=== PATIENT | male | born 1990 | race Caucasian/White ===

== ENCOUNTER 2016-10-17 13:16 | Emergency (ER) | payer OTHER ==
[2016-10-17 13:32] VITALS: BP 139/77; PULSE 78; RESP 18; TEMP 98; O2SAT 97
--- NOTE | 2016-10-17 13:43 | EDPHY ---
H & P Stated Complaint: c/o pine needle insertion to Lt hand while @ work Time Seen by Provider: 10/17/16 13:37 HPI/ROS: CHIEF COMPLAINT: Splinter HISTORY OF PRESENT ILLNESS: Patient is a 26-year-old man who grabbed a pine tree a work and had a pine needle staff him in the hand. He did not go very deep. He was worried that maybe he pinched a nerve. This happened a few hours ago. He has normal range of motion and function. No swelling or erythema. REVIEW OF SYSTEMS: Constitutional: denies: chills, fever, recent illness, recent injury EENTM: denies: blurred vision, double vision, nose congestion Respiratory: denies: cough, shortness of breath Cardiac: denies: chest pain, irregular heart rate, lightheadedness, palpitations Gastrointestinal/Abdominal: denies: abdominal pain, diarrhea, nausea, vomiting, blood streaked stools Genitourinary: denies: dysuria, frequency, hematuria, pain Musculoskeletal: denies: joint pain, muscle pain Skin: See HPI Neurological: denies: headache, numbness, paresthesia, tingling, dizziness, weakness Hematologic/Lymphatic: denies: blood clots, easy bleeding, easy bruising Immunologic/allergic: denies: HIV/AIDS, transplant EXAM: GENERAL: Well-appearing, well-nourished and in no acute distress. HEAD: Atraumatic, normocephalic. EYES: Pupils equal round and reactive to light, extraocular movements intact, sclera anicteric, conjunctiva are normal. ENT: TMs normal, nares patent, oropharynx clear without exudates. Moist mucous membranes. NECK: Normal range of motion, supple without lymphadenopathy or JVD. LUNGS: Breath sounds clear to auscultation bilaterally and equal. No wheezes rales or rhonchi. HEART: Regular rate and rhythm without murmurs, rubs or gallops. ABDOMEN: Soft, nontender, normoactive bowel sounds. No guarding, no rebound. No masses appreciated. BACK: No CVA tenderness, no spinal tenderness, step-offs or deformities EXTREMITIES: Normal range of motion, no pitting or edema. No clubbing or cyanosis. NEUROLOGICAL: Cranial nerves II through XII grossly intact. Normal speech, normal gait. 5/5 strength, normal movement in all extremities, normal sensation PSYCH: Normal mood, normal affect. SKIN: Patient has a very small splinter to the palm aspect of his left hand. It was easily removed with an 18 gauge needle. Source: Patient Exam Limitations: No limitations - Personal History Current Tetanus Diphtheria and Acellular Pertussis (TDAP): Yes - Medical/Surgical History Hx Asthma: No Hx Chronic Respiratory Disease: No Hx Diabetes: No Hx Cardiac Disease: No Hx Renal Disease: No Hx Cirrhosis: No Other PMH: denies - Social History Smoking Status: Never smoked Alcohol Use: Sober Drug Use: None Constitutional: Initial Vital Signs Temperature (C) 36.6 C 10/17/16 13:31 Heart Rate 78 10/17/16 13:31 Respiratory Rate 18 10/17/16 13:31 Blood Pressure 139/77 H 10/17/16 13:31 O2 Sat (%) 97 10/17/16 13:31 O2 Delivery Mode Room Air Allergies/Adverse Reactions: No Known Allergies Allergy (Unverified 10/17/16 13:30) Home Medications: Medication Instructions Recorded NK [No Known Home Meds] 10/17/16 Medical Decision Making Procedures: Splinter removal with an 18 gauge needle. Tolerated well. ED Course/Re-evaluation: No sign of erythema or infection. Foreign body removed. Patient tolerated procedure well. Have him follow up with his regular doctor. Dressed with antibiotic ointment. Differential Diagnosis: Partial list of the Differential diagnosis considered include but were not limited to; small foreign body, infection, laceration and although unlikely based on the history and physical exam, I also considered nerve injury, vascular injury, tendon injury. I discussed these differential diagnoses and the plan with the patient as well as the usual and expected course. The patient understands that the diagnosis is provisional and that in medicine we are not always correct and that further workup is often warranted. Usual and customary warnings were given. All of the patient's questions were answered. The patient was instructed to return to the emergency department should the symptoms at all worsen or return, otherwise to followup with the physician as we discussed. Departure - Departure Disposition: Home, Routine, Self-Care Clinical Impression: Splinter Condition: Fair Instructions: Acute Wounds (ED) Referrals: NONE *PRIMARY CARE P,. [Primary Care Provider] - As per Instructions
== END 2016-10-17 13:49 | disposition home or self-care (01) ==
LOC: CED 13:16
DX: S60.552A Superficial foreign body of left hand, initial encounter (principal); W45.8XXA Other foreign body or object entering through skin, initial encounter; Y92.89 Other specified places as the place of occurrence of the external cause; Y99.0 Civilian activity done for income or pay; Y93.89 Activity, other specified